=== PATIENT | female | born 1960 | race American Indian/Alaskan Native ===

== ENCOUNTER → 2021-08-07 10:15 | Outpatient (BNVA) | payer MEDICARE, SELFPAY | PROVIDERS: Family Provider Counselor Professional; PCP Family Medicine; Visit Provider Family Medicine | DX: I25.110 Atherosclerotic heart disease of native coronary artery with unstable angina pectoris (principal); I10 Essential (primary) hypertension; J30.9 Allergic rhinitis, unspecified; I25.10 Atherosclerotic heart disease of native coronary artery without angina pectoris; M94.0 Chondrocostal junction syndrome [Tietze]; J41.0 Simple chronic bronchitis; G47.01 Insomnia due to medical condition; F41.1 Generalized anxiety disorder; E78.49 Other hyperlipidemia | CPT/HCPCS: 80053; 80061; 85025 ==

== ENCOUNTER → 2021-11-06 11:24 | Outpatient (BNVA) | payer MEDICARE, SELFPAY | PROVIDERS: Family Provider Counselor Professional; PCP Family Medicine; Visit Provider Family Medicine | DX: I10 Essential (primary) hypertension (principal) | CPT/HCPCS: 80048 ==

== ENCOUNTER → 2022-04-18 08:44 | Outpatient (BNVA) | payer MEDICARE, MEDICAID, SELFPAY | PROVIDERS: Family Provider Counselor Professional; PCP Family Medicine; Visit Provider Family Medicine | DX: Z09 Encounter for follow-up examination after completed treatment for conditions other than malignant neoplasm (principal); K29.00 Acute gastritis without bleeding; I10 Essential (primary) hypertension; I25.110 Atherosclerotic heart disease of native coronary artery with unstable angina pectoris; Z72.0 Tobacco use; N18.31 Chronic kidney disease, stage 3a; F41.1 Generalized anxiety disorder; J41.0 Simple chronic bronchitis; E87.6 Hypokalemia | CPT/HCPCS: 80048 ==

== ENCOUNTER → 2022-08-08 13:52 | Outpatient (BNVA) | payer MEDICARE, MEDICAID, SELFPAY | PROVIDERS: Family Provider Counselor Professional; PCP Family Medicine; Visit Provider Family Medicine | DX: K29.00 Acute gastritis without bleeding (principal); I10 Essential (primary) hypertension; I25.110 Atherosclerotic heart disease of native coronary artery with unstable angina pectoris; J30.9 Allergic rhinitis, unspecified; J44.9 Chronic obstructive pulmonary disease, unspecified; N18.31 Chronic kidney disease, stage 3a; J41.0 Simple chronic bronchitis; E78.49 Other hyperlipidemia; F41.1 Generalized anxiety disorder; Z72.0 Tobacco use; E87.6 Hypokalemia | CPT/HCPCS: 80048; 80061 ==

== ENCOUNTER → 2022-11-09 09:38 | Outpatient (BNVA) | payer MEDICARE, MEDICAID, SELFPAY | PROVIDERS: Family Provider Counselor Professional; PCP Family Medicine; Visit Provider Internal Medicine Cardiovascular Disease | DX: I25.10 Atherosclerotic heart disease of native coronary artery without angina pectoris (principal) | CPT/HCPCS: 80048; 83880 ==

== ENCOUNTER → 2022-12-04 11:19 | Outpatient (BNVA) | payer MEDICARE, MEDICAID, SELFPAY | PROVIDERS: Family Provider Counselor Professional; PCP Family Medicine; Visit Provider Family Medicine | DX: R53.83 Other fatigue (principal); N18.31 Chronic kidney disease, stage 3a | CPT/HCPCS: 80048; 80053; 82607; 83880; 84443; 85025 ==

== ENCOUNTER 2022-12-11 08:21 | Outpatient (CLI) | payer MEDICARE, MEDICAID, SELFPAY ==
--- NOTE | 2022-12-11 | ECG_ITS ---
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 Interpretive Statements NAME OF STUDY: LEXISCAN SESTAMIBI STRESS TEST INDICATION: Fatigue, sob, PROCEDURE: At the baseline, the EKG revealed normal sinus rhythm with a poor R wave progression. Diffuse nonspecific ST-T changes.. The baseline heart was 88 bpm with a blood pressue of 136/69 mm of Hg Lexiscan was infused over a period of 20 seconds. A total of 0.4 milligrams of Lexiscan was infused. The stress phase was continued for a total of 5 minutes. Heart rate at the end of the stress phase was 103 bpm with a blood pressure 120/67 mm of Hg. The EKG at the peak infusion revealed no significant changes. Sestamibi was injected 20 seconds after the Lexiscan infusion. Heart rate at the end of the recovery phase was 95 bpm with a blood pressure of 129/66 mm of Hg. CONCLUSION: 1. No significant EKG changes with the LexiScan infusion 2. No LexiScan induced chest pain or cardiac arrhythmia 3. Normal blood pressure and heart rate response 4. Sestamibi/sestamibi perfusion scan pending; see separate report. Electronically Signed On 12-16-2022 17:52:33 CDT by Vinod Hinson M.D. [id number]
[2022-12-11 08:44] VITALS: BMI 26.5
--- NOTE | 2022-12-11 08:46 | NMCV_ITS ---
NM tammy perf SPECT r/s* [id number] Mis Perez Age: 62 Gender: F : 1960 Exam Date: 12/11/2022 09:18 Ordering Phys: Vinod Hinson MD ([email or web address]) Technologist: AYDIN Linares Exam Location: [facility] Indications: CORONARY ANGIOPLASTY STATUS, ATHEROSCLEROTIC HEART DISEASE STRESS TEST Please [facility] IMAGE PROTOCOL Rest/Stress 1 Lexiscan Day Radiopharmaceutical Dose (mCi) Administration Site Administered by Rest: Tc-99m 10.6 IV AYDIN Shabazz Sestamibi Stress:Tc-99m 32.4 IV AYDIN Shabazz Sestamibi Rest: 11-Dec-2022 60 Discovery 630 Stress: 11-Dec-2022 30 Discovery 630 0.4mg Lexiscan. Supine position only as patient was unable to lay prone. SPECT RESULTS Technical Quality: Excellent Raw Data Analysis: Normal Image Corrections: No attenuation or motion correction applied Summed Stress Score: 3 Summed Rest Score: 2 Summed Difference Score: 1 PERFUSION FINDINGS Small area of minimal to moderately decreased tracer uptake in the mid inferolateral and apical lateral region with a subtle area of reversibility. FUNCTIONAL RESULTS (calculated via Gated SPECT) Stress Image LV EF (%): 100 Stress EDV (mL):46 TID: 0.79 Stress ESV (mL):0 FUNCTIONAL FINDINGS: Segmental wall motion analysis revealing no gross wall motion normalities IMPRESSIONS 1. Myocardial perfusion imaging revealing a small area of decreased tracer uptake in the mid inferolateral and apical lateral region with a subtle area of reversibility suggesting ischemia in the circumflex territory. However because of the attenuation artifacts in this region most likely it is artifactual. 2. Normal LV ejection fraction-(estimated 100%- because of end-systolic volume of of 0 ml!. The EF estimation can be misleading because of this) 3. LV wall motion analysis revealing no gross wall motion abnormalities. 4. Possibly normal LV volume. No similar previous studies are available for comparison . Dr Vinod Hinson MD [facility] (Electronically Signed) Final Date: 12 December 2022 08:13 S
--- NOTE | 2022-12-11 09:41 | PC.NURSE ---
pt expressed not wanting to walk on treadmill. stated she wasnt felling good and aches all over and doesnt want to complete the exercise portion. nurse called dr randall and verbal order was given to change to a charisiscan.
[2022-12-11 10:13] VITALS: BP 129/66; PULSE 94
[2022-12-11] MEDS: ondansetron 4 MG Tablet PO (10:28)
[2022-12-11] MEDS: regadenoson 0.4 Mg/5 ml Syringe IVP (10:28)
== END 2022-12-11 08:22 | disposition home or self-care (01) ==
PROVIDERS: PCP Family Medicine; Visit Provider Internal Medicine Cardiovascular Disease
DX: R07.9 Chest pain, unspecified (principal); R06.02 Shortness of breath; R53.83 Other fatigue; I25.10 Atherosclerotic heart disease of native coronary artery without angina pectoris
CPT/HCPCS: 36415; 78452; 93017; 96374; 99205; A9500; J2785; Q0162

== ENCOUNTER 2022-12-18 13:52 | Emergency (ER) | payer MEDICARE, MEDICAID, SELFPAY ==
[2022-12-18] VITALS (21 sets, daily range): BP systolic 100–140; BP diastolic 70–84; PULSE 66–86; RESP 12–23; TEMP 36.9; O2SAT 81–98; BMI 26.5
--- NOTE | 2022-12-18 14:15 | ECG_ITS ---
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 Measurements Intervals [place] Rate: 72 P: 26 IA: 163 QRS: 9 QRSD: 77 T: 77 QT: 406 QTc: 445 Interpretive Statements SINUS RHYTHM LOW QRS VOLTAGE IN PRECORDIAL LEADS [QRS DEFLECTION < 1.0 mV IN CHEST LEADS] POSSIBLE RIGHT VENTRICULAR CONDUCTION DELAY [RSR (QR) IN V1/V2] NONSPECIFIC ST & T-WAVE ABNORMALITY No previous ECG available for comparison Electronically Signed On 12-18-2022 20:40:25 CDT by Tony Napeir M.D. [email or web address] specialty hospital of [email or web address] [facility]icaltrihealth [email or web address]/[id number]
--- NOTE | 2022-12-18 14:15 | XR_ITS ---
WS: [id number] Exam: XR chest 1V portable [id number] Date/Time of Exam: 12/18/2022 2:17 PM Reason For Exam: cp No priors. The lungs are hyperinflated and clear. Heart size is normal. The mediastinum is normal in contour. Si gns of previous CABG surgery. Bony structures are intact. Mild plaque atelectasis in the left base. XR/XR chest 1V portable [id number] IMPRESSION: 1. Pulmonary hyperinflation. No acute process.
--- NOTE | 2022-12-18 14:15 | W.ED.CHESTPA ---
HPI - Chest Pain General: Chief Complaint: Chest Pain Stated Complaint: SOB/Chest Pain Time Seen by Provider: 12/18/22 13:59 History of Present Illness: Ms. Perez is a 62-year-old lady with significant past medical history of CABG x2 presenting to the emergency department for chest pain. She reports prior history of similar. Over the past 4 to 5 days she has had more frequent and more intense pain primarily in the left chest under her breast and radiation down the left arm and up into the left neck. Intensity symptoms is moderate to severe. Course has worsened. No other specific changes in health, exacerbating, or alleviating factors identified. EMS administered aspirin 324 mg chewable and 3 times nitro with some relief in pain. Onset (ago): day(s) Timing of current episode: constant Prior episodes: Yes Pain location: left chest Pain radiation: left arm and neck Severity: moderate Quality: aching and heaviness Relieving factors: nitroglycerin Exacerbating factors: nothing Review of Systems General: Reports: 10 or more systems reviewed and unremarkable except in HPI and below PFSH ED PFSH: Medical History Allergic rhinitis CAD (coronary artery disease) Depression ISABEL (generalized anxiety disorder) Hypertension HCTZ caused hypokalemia, amlodipine caused leg swelling in past Insomnia Psychiatric care Surgical History H/O knee surgery left S/P CABG (coronary artery bypass graft) Social History Smoking and tobacco status: current every day smoker cigarettes Packs smoked per day: 0.5 Alcohol intake: never Substance/Drug Use: never Financial difficulty paying for basics: Somewhat Hard Female Reproductive History: Spontaneous abortions: No Physical Exam Const: COMMON NORMALS: alert GENERAL APPEARANCE: cooperative and well developed HENMT: COMMON NORMALS: normocephalic and atraumatic HEAD & SCALP: normocephalic and atraumatic Eye: COMMON NORMALS: conjunctivae normal CONJUNCTIVA: Yes conjunctivae normal SCLERA: sclerae normal Neck/C-Spine: COMMON NORMALS: supple GENERAL: Yes trachea midline Resp: COMMON NORMALS: clear to auscultation bilaterally EFFORT & INSPECTION: Yes able to speak in complete sentences AUSCULTATION: clear to auscultation bilaterally Cardio: COMMON NORMALS: regular rate and regular rhythm RATE: regular rate RHYTHM: regular rhythm GI: COMMON NORMALS: Soft to palpation PALPATION: Yes Soft to palpation and No Tenderness to palpation present (GI) Extremity: GENERAL: Yes normal exam except as noted and No edema Neuro: COMMON NORMALS: moves all extremities SENSORIUM/ORIENTATION: Yes alert and No Orientation impaired Psych: COMMON NORMALS: mental status grossly normal and Normal thought process present THOUGHT PROCESS: Normal thought process present Course Vital Signs: Vital signs: Vital Signs Temperature 98.4 F 12/18/22 14:26 Pulse Rate 71 12/18/22 18:40 Respiratory Rate 17 12/18/22 18:35 Blood Pressure 115/81 12/18/22 18:30 Pulse Oximetry 81 L 12/18/22 17:29 Oxygen Delivery Me thod Room Air 12/18/22 17:29 Oxygen Flow Rate 2 12/18/22 15:25 MDM - Chest Pain Medical Decision Making 62-year-old lady with cardiac history presenting with chest pain. Exam as above. Prehospital aspirin and nitro administered. EKG demonstrates sinus rhythm with normal axis and intervals, there are nonspecific ST segment abnormalities, no STEMI. Labs with no significant hematologic abnormality. Metabolic panel with mildly elevated creatinine. Negative range 2-hour delta troponin. BNP not significantly elevated. D-dimer is elevated. X-ray with hyperinflation however no lobar consolidation or pneumothorax. Given symptomatology as well as elevated D-dimer CTA is required. No pulmonary embolus, emphysema present, cardiomegaly and coronary artery calcifications present. Patient improved with antiemetic. Chest pain resolved. Patient had recent cardiac testing on 12/11/2022. Likely etiology of patient's symptoms is unclear however does not appear to need hospitalization at this time. Symptoms may be secondary to COPD. The results of ED evaluation were discussed with the patient including prescriptions and/or symptomatic cares (if applicable) including appropriate and responsible use, followup plan, and return precautions. The patient verbalized understanding and felt safe for discharge. Medical Records I reviewed the patient's medical records. Lab Data I reviewed the patient's lab results. 12/18/22 14:45 12/18/22 14:45 Radiology Impressions Chest X-Ray 12/18/22 14:15 IMPRESSION: 1. Pulmonary hyperinflation. No acute process. Chest CTA 12/18/22 16:00 IMPRESSION: 1. Negative for pulmonary embolus. 2. Bilateral dependent atelectasis. 3. Sternotomy wires. 4. Emphysematous changes suspected. 5. Coronary artery atherosclerotic calcifications. 6. Cardiomegaly. 7. Small hiatal hernia suspected. COMMENTS: In the absence of a history or active diagnosis of lung cancer, it is recommended that this patient with emphysema be evaluated for enrollment in a low dose CT lung cancer screening program. Laboratory Results WBC 10.0 10^3/uL (4.0-10.0) 12/18/22 14:45 RBC 4.36 10^6/uL (4.1-5.3) 12/18/22 14:45 Hgb 13.0 g/dL (11.5-15.3) 12/18/22 14:45 Hct 39.6 % (37.0-47.0) 12/18/22 14:45 MCV 90.8 fl (81-99) 12/18/22 14:45 MCH 29.8 pg (28.0-34.0) 12/18/22 14:45 MCHC 32.8 g/dL (30.0-36.0) 12/18/22 14:45 RDW 13.2 % (12.1-15.1) 12/18/22 14:45 Plt Count 484 10^3/cmm (130-400) H 12/18/22 14:45 MPV 9.0 fL (7.4-10.4) 12/18/22 14:45 Neut % (Auto) 62.9 % 12/18/22 14:45 Lymph % (Auto) 28.4 % 12/18/22 14:45 [place] % (Auto) 6.4 % 12/18/22 14:45 Eos % (Auto) 1.4 % 12/18/22 14:45 Baso % (Auto) 0.5 % 12/18/22 14:45 Neut # (Auto) 6.30 10^3/uL (1.8-7.7) 12/18/22 14:45 Lymph # (Auto) 2.9 10^3/uL (0.8-4.8) 12/18/22 14:45 [place] # (Auto) 0.6 10^3/uL (0.2-0.9) 12/18/22 14:45 Eos # (Auto) 0.1 10^3/uL (0.0-0.8) 12/18/22 14:45 Baso # (Auto) 0.1 10^3/uL (0.0-0.1) 12/18/22 14:45 Nucleated RBC % (auto) 0 % 12/18/22 14:45 Nucleated RBCs # 0.0 /100WBC 12/18/22 14:45 D-Dimer 0.81 ug/mIFEU (0-0.59) H 12/18/22 14:45 Sodium 137 mmol/L (136-145) 12/18/22 14:45 Potassium 4.8 mmol/L (3.5-5.1) 12/18/22 14:45 Chloride 100 mmol/L (98-107) 12/18/22 14:45 Carbon Dioxide 22 mmol/L (22-29) 12/18/22 14:45 Anion Gap 19.8 (5-19) H 12/18/22 14:45 BUN 19 mg/dL (8-23) 12/18/22 14:45 Creatinine 1.3 mg/dL (0.5-0.9) H 12/18/22 14:45 GFR Calculation 41.5 mL/min (90-130) L 12/18/22 14:45 Glucose 100 mg/dL (65-115) 12/18/22 14:45 Calculated Osmolality 286 mOsm/kg (285-295) 12/18/22 14:45 Calcium 9.6 mg/dL (8.5-10.5) 12/18/22 14:45 Total Bilirubin 0.2 mg/dL (0.15-1.2) 12/18/22 14:45 AST 16 U/L (0-32) 12/18/22 14:45 ALT 8 U/L (0-33) 12/18/22 14:45 Alkaline Phosphatase 154 U/L (35-105) H 12/18/22 14:45 Troponin T Baseline 9 ng/L (0-10) 12/18/22 14:45 Troponin T 120 Minute 8.10 ng/L (0-10) 12/18/22 16:59 Delta Troponin T -0.9 ABS# (0-10) L 12/18/22 16:59 NT-Pro-B Natriuret Pep 221 pg/mL (0-125) H 12/18/22 14:45 Total Protein 7.1 g/dL (6.6-8.7) 12/18/22 14:45 Albumin 4.5 g/dL (3.5-5.2) 12/18/22 14:45 Globulin 2.6 g/dL (1.3-4.6) 12/18/22 14:45 Lipase 38 U/L (13-60) 12/18/22 14:45 Discharge Plan Discharge Patient Disposition: Home Clinical Impression: Chest pain, COPD (chronic obstructive pulmonary disease) Condition: Stable Prescriptions: No Action aspirin 81 mg tablet,delayed release (DR/EC) 81 mg PO DAILY acetaminophen 500 mg capsule 1,000 mg PO TID MDD 6 capsules PRN (Reason: fever) Qty: 90 2RF diazepam 2 mg tablet 2 mg PO DAILY PRN (Reason: anxiety) 30 Days Qty: 30 3RF Zinc-15 66 mg tablet 66 mg PO DAILY cinnamon bark [Cinnamon] 500 mg capsule 500 mg PO DAILY magnesium 250 mg tablet 250 mg PO DAILY pantoprazole 40 mg tablet,delayed release (DR/EC) 40 mg PO DAILY PRN (Reason: Heartburn) nitroglycerin 0.4 mg tablet, sublingual 0.4 mg sublingual Q5M PRN (Reason: chest pain) 30 Days Qty: 30 3RF Rx Instructions: until response; do not exceed 3 doses per episode furosemide [Lasix] 40 mg tablet 40 mg PO DAILY PRN (Reason: edema) 30 Days Qty: 30 3RF potassium chloride 20 mEq tablet extended release 20 meq PO DAILY PRN (Reason: Lasix) 30 Days Qty: 30 5RF amlodipine 10 mg tablet 10 mg PO DAILY Qty: 30 0RF ondansetron HCl 8 mg tablet 8 mg PO DAILY PRN (Reason: nausea and vomiting) 30 Days Qty: 30 1RF metoprolol tartrate 25 mg tablet 25 mg PO BID 90 Days Qty: 180 1RF isosorbide mononitrate 30 mg tablet extended release 24 hr 30 mg PO QAM 90 Days Qty: 90 1RF albuterol sulfate 90 mcg/actuation HFA aerosol inhaler 2 puff INHALATION Q6H PRN (Reason: shortness of breath or wheezing) Qty: 8.5 5RF atorvastatin 10 mg tablet 10 mg PO BEDTIME zolpidem 10 mg tablet 10 mg PO BEDTIME fluticasone propionate 50 mcg/actuation spray,suspension 1 spray intranasal Q12H PRN (Reason: Nasal Congestion) Rx Instructions: administer into each nostril loratadine 10 mg tablet 10 mg PO BEDTIME PRN (Reason: Allergy Symptoms) Discharge Orders: Discharge ED (Routine); Ordered 12/18/22 Ordered By: Juvenal Peres Referrals: Domi Hinojosa MD [Primary Care Provider] - Discharge Diet: Usual diet Discharge Activity: Resume usual activity Patient Instructions: Chest Pain (ED), Emphysema (ED), Opioid Safety Activity Restrictions/Additional Instructions: Thank you for visiting the emergency department. You were seen and evaluated for chest pain. The exact cause your symptoms is unclear however given recent cardiac testing does not appear to need inpatient management at this time. Please follow-up with Dr. Hinson as scheduled and your primary care provider. A component of symptoms may be secondary to lung irritation with underlying lung disease. I will prescribe steroids and antibiotics. Please also use your albuterol metered-dose inhaler 2 puffs every 4 hours for 24 hours followed by 2 puffs every 6 hours for 24 hours followed by 2 puffs every 8 hours for 24 hours and then return to the normal schedule. Return to the emergency department for worsening symptoms or anything else that you are concerned about and feel needs emergency department evaluation. Coding Level of Care Code ED Director Of Instruction for Babak Askew
[2022-12-18] MEDS: ondansetron 2 mg/ML SDV 2 mL 4 MG IVP ×2 (14:30→17:10)
[2022-12-18 15:19] LABS: Basophils # 0.1 10^3/uL (0.0-0.1); Basophils % 0.5 %; Eosinophils # 0.1 10^3/uL (0.0-0.8); Eosinophils % 1.4 %; Hematocrit 39.6 % (37.0-47.0); Lymphocytes # 2.9 10^3/uL (0.8-4.8); Lymphocytes % 28.4 %; Mean Corpuscular HGB Conc 32.8 g/dL (30.0-36.0); Mean Corpuscular Hemoglobin 29.8 pg (28.0-34.0); Mean Corpuscular Volume 90.8 fl (81-99); Monocytes # 0.6 10^3/uL (0.2-0.9); Monocytes % 6.4 %; Neutrophils % 62.9 %; Nucleated Red Blood Cells % 0 %; Platelet Count 484 10^3/cmm (130-400); Red Blood Count 4.36 10^6/uL (4.1-5.3); Red Cell Distribution Width 13.2 % (12.1-15.1)
[2022-12-18 15:38] LABS: Troponin(5th) Baseline 9 ng/L (0-10)
[2022-12-18 15:51] LABS: D Dimer 0.81 ug/mIFEU (0-0.59)
--- NOTE | 2022-12-18 16:00 | CTR_ITS ---
PROCEDURE INFORMATION: Exam: CTA Chest With Contrast Exam date and time: 12/18/2022 4:31 PM Age: 62 years old Clinical indication: Abnormal findings; Abnormal diagnostic tests; Elevated d-dimer; Prior surgery; Surgery type: Cabg; Additional info: Chest pain, elevated d-dimer TECHNIQUE: Imaging protocol: Computed tomographic angiography of the chest with contrast. 3D rendering (Not supervised by radiologist): MIP and/or 3D reconstructed images were created by the technologist. Radiation optimization: All CT scans at this facility use at least one of these dose optimization techniques: automated exposure control; mA and/or kV adjustment per patient size (includes targeted exams where dose is matched to clinical indication); or iterative reconstruction. Contrast material: OMNI 350; Contrast volume: 100 ml; Contrast route: INTRAVENOUS (IV); REPORTING DATA: Count of CT and Cardiac NM exams in prior 12 months: This patient has received [address] and 0 known cardiac nuclear medicine studies in the 12 months prior to the current study. COMPARISON: CR XR chest 1V portable [id number] 12/18/2022 2:23 PM RADIATION DOSE METRICS: Total DLP (mGy-cm): 287.97 FINDINGS: Pulmonary arteries: Normal. No pulmonary emboli. Aorta: Unremarkable. No aortic aneurysm. No aortic dissection. Lungs: Bilateral dependent atelectasis. Emphysematous changes suspected. Pleural spaces: Unremarkable. No pneumothorax. No pleural effusion. Heart: Cardiomegaly. Coronary arteries: Coronary artery atherosclerotic calcifications. Lymph nodes: Unremarkable. No enlarged lymph nodes. Bones/joints: Sternotomy wires. Soft tissues: Subcentimeter hepatic dome cyst suspected. Small hiatal hernia suspected. CT/CT angio chest PE protcl [id number] IMPRESSION: 1. Negative for pulmonary embolus. 2. Bilateral dependent atelectasis. 3. Sternotomy wires. 4. Emphysematous changes suspected. 5. Coronary artery atherosclerotic calcifications. 6. Cardiomegaly. 7. Small hiatal hernia suspected. COMMENTS: In the absence of a history or active diagnosis of lung cancer, it is recommended that this patient with emphysema be evaluated for enrollment in a low dose CT lung cancer screening program.
--- NOTE | 2022-12-18 16:15 | ECG_ITS ---
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 Measurements Intervals [place] Rate: 70 P: 30 [place]: 180 QRS: 13 QRSD: 79 T: 56 QT: 396 QTc: 428 Interpretive Statements SINUS RHYTHM POSSIBLE RIGHT VENTRICULAR CONDUCTION DELAY [RSR (QR) IN V1/V2] Compared to ECG 12/18/2022 14:31:22 T-wave abnormality no longer present Electronically Signed On 12-18-2022 20:43:14 CDT by Tony Napier M.D. [email or web address] for women [id number]
[2022-12-18 16:18] LABS: Alanine Aminotransferase 8 U/L (0-33); Albumin Level 4.5 g/dL (3.5-5.2); Alkaline Phosphatase 154 U/L (35-105); Anion Gap 19.8 (5-19); Aspartate Amino Transferase 16 U/L (0-32); Blood Urea Nitrogen 19 mg/dL (8-23); Calcium 9.6 mg/dL (8.5-10.5); Carbon Dioxide 22 mmol/L (22-29); Chloride 100 mmol/L (98-107); Globulin 2.6 g/dL (1.3-4.6); Glomerular Filtration Rate 41.5 mL/min (90-130); Glucose 100 mg/dL (65-115); Lipase 38 U/L (13-60); NT Pro B Type Natriuretic Pept 221 pg/mL (0-125); Osmolality Calculated 286 mOsm/kg (285-295); Potassium 4.8 mmol/L (3.5-5.1); Sodium 137 mmol/L (136-145); Total Bilirubin 0.2 mg/dL (0.15-1.2); Total Protein 7.1 g/dL (6.6-8.7)
[2022-12-18] MEDS: iohexol 350 mg/mL 500 mL Btl (per mL) IV (16:39)
[2022-12-18 18:19] LABS: Troponin 5 2HR Delta -0.9 ABS# (0-10)
== END 2022-12-18 18:45 | disposition home or self-care (01) ==
PROVIDERS: Emergency Provider Emergency Medicine; PCP Family Medicine
DX: R07.9 Chest pain, unspecified (principal); J44.9 Chronic obstructive pulmonary disease, unspecified; Z79.82 Long term (current) use of aspirin; I25.10 Atherosclerotic heart disease of native coronary artery without angina pectoris; I10 Essential (primary) hypertension; Z95.1 Presence of aortocoronary bypass graft; F17.210 Nicotine dependence, cigarettes, uncomplicated
CPT/HCPCS: 36415; 71045; 71275; 80053; 83690; 83880; 84484; 85025; 85378; 93005; 96374; 96376; 99285; J2405; Q9967

== ENCOUNTER → 2022-12-25 10:24 | Outpatient (BNVA) | payer MEDICARE, MEDICAID, SELFPAY | PROVIDERS: PCP Family Medicine; Visit Provider Internal Medicine Cardiovascular Disease | DX: R07.9 Chest pain, unspecified (principal); R60.0 Localized edema; I12.9 Hypertensive chronic kidney disease with stage 1 through stage 4 chronic kidney disease, or unspecified chronic kidney disease; N18.31 Chronic kidney disease, stage 3a; E78.49 Other hyperlipidemia; J44.9 Chronic obstructive pulmonary disease, unspecified; F17.210 Nicotine dependence, cigarettes, uncomplicated | CPT/HCPCS: 99214 ==

== ENCOUNTER → 2023-12-18 10:19 | Outpatient (BNVA) | payer MEDICARE, SELFPAY | PROVIDERS: PCP Family Medicine; Visit Provider Family Medicine | DX: I10 Essential (primary) hypertension (principal); J44.9 Chronic obstructive pulmonary disease, unspecified; E78.5 Hyperlipidemia, unspecified; I25.110 Atherosclerotic heart disease of native coronary artery with unstable angina pectoris; I25.10 Atherosclerotic heart disease of native coronary artery without angina pectoris; R06.02 Shortness of breath; K29.00 Acute gastritis without bleeding; R60.0 Localized edema; E78.49 Other hyperlipidemia | CPT/HCPCS: 80053; 80061; 85025 ==